=== PATIENT | male | born 1940 ===

== ENCOUNTER 2022-02-02 08:24 | Day surgery (SDC) | payer MEDICARE ==
[~2022-02-02 08:24] MED LIST: Apraclonidine 0.5% Ophth Soln 5 ML Bot EYERT ONE; Balanced Salt Solution Ophth Irrig 500 ML Bottle IOCULAR ONE; Chondroitin Sulfate/Hyaluronate Sodium Ophth Inj 0.75 ML Syringe EYERT ONE; Dexamethasone/Neomycin/Polymyxin B Ophth Oint 3.5 GM Tube EYERT ONE; Diclofenac Sodium 0.1% Ophth Soln 5 ML Bottle EYERT ONE; Lidocaine 1% 30 ML SDV ONE; Povidone-Iodine 5% Sterile Ophth Soln 30 ML Bottle EYERT ONE; Proparacaine 0.5% Ophth Soln 15 ML Bottle EYERT ONE; Vancomycin 500 MG SDV EYERT ONE
[2022-02-02] MEDS ORDERED: Sodium Chloride 0.9% 10 ML Syringe IV ONE (08:25)
[2022-02-02] MEDS ORDERED: Midazolam 1 MG/ML 2 ML SDV IV ONE (08:25)
[2022-02-02] MEDS ORDERED: Dexamethasone 4 MG/ML SDV IV ONE (08:25)
[2022-02-02] MEDS ORDERED: Sodium Chloride 0.9% 10 ML Syringe FLUSH PRN (08:30)
[2022-02-02] MEDS ORDERED: Timolol Maleate 0.5% Ophth Soln 5 ML Bottle EYERT ONE (08:30)
[2022-02-02] MEDS ORDERED: Acetaminophen/Codeine 300-30 MG Tab PO PRN (08:30)
[2022-02-02] MEDS ORDERED: Moxifloxacin 0.5% Ophth Soln 3 ML Bottle EYERT ONE (08:30)
[2022-02-02] MEDS ORDERED: Povidone-Iodine 5% Sterile Ophth Soln 30 ML Bottle EYERT ONE ×2 (08:30→10:50)
[2022-02-02] MEDS ORDERED: Acetaminophen 325 MG Tab PO PRN (08:30)
[2022-02-02] MEDS ORDERED: Proparacaine 0.5% Ophth Soln 15 ML Bottle EYERT ONE ×2 (08:30→10:50)
[2022-02-02] MEDS ORDERED: Tropicamide 1% Ophth Soln 15 ML Bottle EYERT ONE (08:30)
[2022-02-02] MEDS ORDERED: Ondansetron 4 MG/2 ML SDV IVPUSH PRN (08:30)
[2022-02-02] MEDS ORDERED: Cataract Ophth Solution EYERT ONE (08:30)
[2022-02-02] MEDS: Phenylephrine 10% Ophth Soln 5 ML Bot EYERT PRN ×2 (08:59→09:29)
[2022-02-02] MEDS ORDERED: Diclofenac Sodium 0.1% Ophth Soln 5 ML Bottle EYERT ONE (10:51)
[2022-02-02] MEDS ORDERED: Balanced Salt Solution Ophth Irrig 500 ML Bottle IOCULAR ONE (10:52)
[2022-02-02] MEDS ORDERED: Chondroitin Sulfate/Hyaluronate Sodium Ophth Inj 0.75 ML Syringe EYERT ONE (10:54)
[2022-02-02] MEDS ORDERED: Dexamethasone 4 MG/ML SDV ONE ×2 (10:57→11:00)
== END 2022-02-02 11:50 | disposition home or self-care (01) ==
LOC: DL.SDS 08:24
PROVIDERS: ATTEND Ophthalmology
DX: H25.811 Combined forms of age-related cataract, right eye (principal)
CPT/HCPCS: 00142; 66984; J1100; J2250; J3490; V2632; A9270-GY; J3370

== ENCOUNTER → 2022-02-16 | Day surgery (SDC) | payer MEDICARE ==
[~2022-02-16] MED LIST changes: +Acetaminophen 325 MG Tab PO PRN; +Acetaminophen/Codeine 300-30 MG Tab PO PRN; +Apraclonidine 0.5% Ophth Soln 5 ML Bot EYELF ONE; -Apraclonidine 0.5% Ophth Soln 5 ML Bot EYERT ONE; +Cataract Ophth Solution EYELF ONE; +Chondroitin Sulfate/Hyaluronate Sodium Ophth Inj 0.75 ML Syringe EYELF ONE; -Chondroitin Sulfate/Hyaluronate Sodium Ophth Inj 0.75 ML Syringe EYERT ONE; +Dexamethasone 4 MG/ML SDV IV ONE; +Dexamethasone/Neomycin/Polymyxin B Ophth Oint 3.5 GM Tube EYELF ONE; -Dexamethasone/Neomycin/Polymyxin B Ophth Oint 3.5 GM Tube EYERT ONE; +Diclofenac Sodium 0.1% Ophth Soln 5 ML Bottle EYELF ONE; -Diclofenac Sodium 0.1% Ophth Soln 5 ML Bottle EYERT ONE; +Midazolam 1 MG/ML 2 ML SDV IV ONE; +Moxifloxacin 0.5% Ophth Soln 3 ML Bottle EYELF ONE; +Ondansetron 4 MG/2 ML SDV IVPUSH PRN; +Povidone-Iodine 5% Sterile Ophth Soln 30 ML Bottle EYELF ONE; -Povidone-Iodine 5% Sterile Ophth Soln 30 ML Bottle EYERT ONE; +Proparacaine 0.5% Ophth Soln 15 ML Bottle EYELF ONE; -Proparacaine 0.5% Ophth Soln 15 ML Bottle EYERT ONE; +Sodium Chloride 0.9% 10 ML Syringe FLUSH PRN; +Sodium Chloride 0.9% 10 ML Syringe IV ONE; +Timolol Maleate 0.5% Ophth Soln 5 ML Bottle EYELF ONE; +Tropicamide 1% Ophth Soln 15 ML Bottle EYELF ONE; +Vancomycin 500 MG SDV EYELF ONE; -Vancomycin 500 MG SDV EYERT ONE
[2022-02-16] MEDS: Phenylephrine 10% Ophth Soln 5 ML Bot EYELF PRN ×2 (09:05→09:28)
== END | disposition home or self-care (01) ==
LOC: DL.SDS 08:43
PROVIDERS: ATTEND Ophthalmology
DX: H25.812 Combined forms of age-related cataract, left eye (principal); N40.0 Benign prostatic hyperplasia without lower urinary tract symptoms; Z98.890 Other specified postprocedural states
CPT/HCPCS: 00142; A9270-GY; J1100; J2250; J3370; J3490; V2632